=== PATIENT | female | born 1965 | race Caucasian/White ===

== ENCOUNTER 2021-06-29 20:36 | Emergency (ER) | payer BC, MEDICARE, SELFPAY ==
[2021-06-29 20:43] VITALS: BP 193/73; PULSE 83; RESP 20; TEMP 36.6; O2SAT 93; BMI 30.9
--- NOTE | 2021-06-29 20:59 | CTR_ITS ---
PROCEDURE INFORMATION: Exam: CT Cervical Spine Without Contrast Exam date and time: 06/29/2021 8:59 PM Age: 56 years old Clinical indication: Injury or trauma; Fall; Blunt trauma; Prior surgery; Surgery type: Cervical fusion; Patient HX: Patient states was bucked off of a mule yesterday and fell off of a wagon tonight. C/O head and neck pain with hematuria. History of appendix cancer. TECHNIQUE: Imaging protocol: Computed tomography images of the cervical spine without contrast. Radiation optimization: All CT scans at this facility use at least one of these dose optimization techniques: automated exposure control; mA and/or kV adjustment per patient size (includes targeted exams where dose is matched to clinical indication); or iterative reconstruction. COMPARISON: CT head wo con* [id number] 06/29/2021 9:24 PM RADIATION DOSE METRICS: Total DLP (mGy-cm): 804.14 FINDINGS: Vertebrae: No acute fracture. Normal alignment. C1-C2: Occipital craniectomy changes seen with surgical hardware in the region of the occipital bone and upper cervical spine. C2-C3: No significant disc protrusion. No severe spinal canal stenosis. No significant neural foraminal narrowing. C3-C4: No significant disc protrusion. No severe spinal canal stenosis. No significant neural foraminal narrowing. C4-C5: No significant disc protrusion. No severe spinal canal stenosis. No significant neural foraminal narrowing. C5-C6: No significant disc protrusion. No severe spinal canal stenosis. No significant neural foraminal narrowing. C6-C7: No significant disc protrusion. No severe spinal canal stenosis. No significant neural foraminal narrowing. C7-T1: No significant disc protrusion. No severe spinal canal stenosis. No significant neural foraminal narrowing. Soft tissues: Unremarkable. Lungs: Lung apices are normal. CT/CT cervical spin wo con* [id number] IMPRESSION: Negative for fracture or dislocation Radiation Dose CTDIVOL = (mGy): DLP = 804.14 (mGy-cm)
--- NOTE | 2021-06-29 20:59 | CTR_ITS ---
PROCEDURE INFORMATION: Exam: CT Head Without Contrast Exam date and time: 06/29/2021 8:59 PM Age: 56 years old Clinical indication: Injury or trauma; Fall; Blunt trauma (contusions or hematomas); Prior surgery; Surgery type: Occipito-cervical fusion. ; Patient HX: Patient states was bucked off of a mule yesterday and fell off of a wagon tonight. C/O head and neck pain with hematuria. History of appendix cancer. TECHNIQUE: Imaging protocol: Computed tomography of the head without contrast. Radiation optimization: All CT scans at this facility use at least one of these dose optimization techniques: automated exposure control; mA and/or kV adjustment per patient size (includes targeted exams where dose is matched to clinical indication); or iterative reconstruction. COMPARISON: No relevant prior studies available. RADIATION DOSE METRICS: Total DLP (mGy-cm): 903.05 FINDINGS: Brain: Normal. No hemorrhage. Unremarkable white matter. No mass effect. Cerebral ventricles: No ventriculomegaly. Paranasal sinuses: Visualized sinuses are unremarkable. No fluid levels. Mastoid air cells: Visualized mastoid air cells are well aerated. Bones/joints: Occipital craniectomy changes with surgical hardware seen. Soft tissues: Unremarkable. CT/CT head wo con* [id number] IMPRESSION: 1. Negative for intracranial hemorrhage or mass effect. 2. Occipital craniectomy changes with surgical hardware seen. Radiation Dose CTDIVOL = (mGy): DLP = 903.05 (mGy-cm)
--- NOTE | 2021-06-29 21:00 | CTR_ITS ---
PROCEDURE INFORMATION: Exam: CT Abdomen And Pelvis Without Contrast Exam date and time: 06/29/2021 9:00 PM Age: 56 years old Clinical indication: Injury or trauma; Fall; Blunt; Generalized; Prior surgery; Surgery type: Appy; Patient HX: Patient states was bucked off of a mule yesterday and fell off of a wagon tonight. C/O head and neck pain with hematuria. History of appendix cancer. TECHNIQUE: Imaging protocol: Computed tomography of the abdomen and pelvis without contrast. Radiation optimization: All CT scans at this facility use at least one of these dose optimization techniques: automated exposure control; mA and/or kV adjustment per patient size (includes targeted exams where dose is matched to clinical indication); or iterative reconstruction. COMPARISON: No relevant prior studies available. RADIATION DOSE METRICS: Total DLP (mGy-cm): 1846.08 FINDINGS: Lungs: There is a calcified granuloma in the right middle lobe. There is subsegmental atelectasis in the lung bases. Liver: The liver is normal. Gallbladder and bile ducts: The gallbladder is normal. There is no biliary dilation. Pancreas: The pancreas is unremarkable. Spleen: The spleen is unremarkable. Adrenal glands: The adrenal glands are unremarkable. Kidneys and ureters: Mild right hydronephrosis. Nondilated ureter. The left kidney and ureter are unremarkable. Stomach and bowel: The stomach is unremarkable. The small bowel is nondilated. There is moderate descending colonic diverticulosis without evidence of diverticulitis. Appendix: The appendix is absent. Intraperitoneal space: There is no free air or significant intraperitoneal free fluid. Vasculature: The aorta is unremarkable. There is no aneurysm. Lymph nodes: There is no lymphadenopathy in the retroperitoneum, mesentery, pelvis or inguinal regions. Urinary bladder: The urinary bladder is unremarkable. Reproductive: The uterus is unremarkable. There is no adnexal mass or large cyst. Bones/joints: There is mild degenerative disease in the lumbar spine. The pelvis and proximal femora are intact. Soft tissues: The abdominal wall is intact. CT/CT abdomen pelvis wo con [id number] IMPRESSION: 1. No acute findings. 2. Incidental findings above. Radiation Dose CTDIVOL = (mGy): DLP = 1846.08 (mGy-cm)
[2021-06-29 21:16] LABS: Basophils # 0.1 10^3/uL (0.0-0.1); Basophils % 1.3 %; Eosinophils # 0.1 10^3/uL (0.0-0.8); Eosinophils % 1.5 %; Hematocrit 39.9 % (37.0-47.0); Hemoglobin 13.2 g/dL (11.5-15.3); Lymphocytes # 2.8 10^3/uL (0.8-4.8); Mean Corpuscular HGB Conc 33.1 g/dL (30.0-36.0); Mean Corpuscular Hemoglobin 30.5 pg (28.0-34.0); Mean Corpuscular Volume 92.1 fl (81-99); Mean Platelet Volume 10.7 fL (7.4-10.4); Monocytes # 0.8 10^3/uL (0.2-0.9); Neutrophils # 5.19 10^3/uL (1.8-7.7); Nucleated Red Blood Cells % 0 %; Platelet Count 339 10^3/cmm (130-400); Red Blood Count 4.33 10^6/uL (4.1-5.3); Red Cell Distribution Width 12.8 % (12.1-15.1); White Blood Count 9.1 10^3/uL (4.0-10.0)
[2021-06-29 21:37] LABS: INR 0.96 (0.8-1.2); Partial Thromboplastin Time 27.6 SECONDS (23.9-36.7)
[2021-06-29 21:39] LABS: Alanine Aminotransferase 21 U/L (0-33); Albumin Level 4.4 g/dL (3.5-5.2); Alkaline Phosphatase 103 IU/L (35-105); Anion Gap 17.3 (5-19); Aspartate Amino Transferase 23 U/L (0-32); Blood Urea Nitrogen 18 mg/dL (6-20); Calcium 8.8 mg/dL (8.5-10.5); Carbon Dioxide 24 mmol/L (22-29); Chloride 101 mmol/L (98-107); Glomerular Filtration Rate 64.3 mL/min (90-130); Glucose 105 mg/dL (65-115); Lipase 73 U/L (13-60); Osmolality Calculated 290 mOsm/kg (285-295); Potassium 3.3 mmol/L (3.5-5.1); Sodium 139 mmol/L (136-145); Total Bilirubin 0.2 mg/dL (0.15-1.2); Total Protein 7.4 g/dL (6.6-8.7)
--- NOTE | 2021-06-29 21:43 | ED_ITS ---
HPI - General Adult General: Chief complaint: Trauma Stated complaint: NECK/BACK PAIN FELL OUT OF WAGON Time Seen by Provider: 06/29/21 20:57 History of Present Illness: HPI narrative: Patient is a 56-year-old female w/ history prior occipital craniotomy with surgical fixation to the neck who presents the emergency room with complaints of headache and neck pain and hematuria after falling off a wagon. Patient fell to the ground history yesterday afternoon and since then reported neck pain. Patient denies any LOC since last report significant back of the neck pain. Patient has had 2 episodes of hematuria since then. Denies any abdominal pain, or other focal extremity pain. Denies any melena or hematochezia. Patient has no other focal complaints at this time. Onset:1 day ago Duration:1 day Location:home Severity: moderate Review of Systems Narrative: Constitutional: No fever, no chills. HEENT: No vision changes, +neck pain CV: No chest pain, no palpitations PULM: no cough, no dyspnea. GI: No abdominal pain, no N/V/D. : No dysuria MSKEL: No muscle pain SKIN: No new rashes, no lesions. NEURO: +headache, no focal weakness. HEME: No visible bruises PSYCH: Normal mood [facility] ED Female Reproductive History: Date of last menstrual period: 12/18/20 Physical Exam Narrative: EXAM NARRATIVE: Head: Atraumatic Eyes: PERRL, conjunctiva without injection ENT: Mucous membrane moist NECK: ROM unable to asess since in C collar, mild posterior neck tenderness to palpation LUNGS: LCTAB, no crackles/rhonchi CV: RRR ABDOMEN: Soft, No focal TTP. NO guarding rebound, guarding, rigidity. No CVA tenderness to percussion. Neg Foster/Neg McBurney's point tenderness, no suprabupic tenderness to palpation. EXTREMITY: Normal ROM SKIN: No rash or erythema NEURO: Awake and alert, no focal motor deficits PSYCH: Normal mood and affect Course Vital Signs: Vital signs: Vital Signs Temperature 97.8 F 06/29/21 20:43 Pulse Rate 72 06/29/21 23:13 Respiratory Rate 18 06/29/21 23:13 Blood Pressure 193/73 06/29/21 20:43 Pulse Oximetry 98 06/29/21 23:13 MDM - General Adult MDM Narrative: Medical decision making narrative: Patient is a 56-year-old female w/ hx of prior surgery to the neck who presents the emergency room after falling off a wagon yesterday with complaints of headache, neck pain, and hematuria x2 episode. On exam, patient is hemodynamically stable with mild tenderness to palpation over the posterior cervical spine. Patient is in a c- collar currently. Rest of neuro exam is intact. Lab work-up showed of potassium of 3.3, will replete with PO potassium. UA is negative for hematuria gross or microscopic. CT imagings today did not show any signs of brain bleeding, solid abdominal organ injury, or acute fractures patient received Tylenol in the emergency room. I have given patient follow up with our counter caser to be seen by a PCP for persistent pain and possible concussion symptoms. Patient aware of a call from our counter caser to schedule for appointment(s) and verbalizes understanding of the importance of following up. Incidental findings of granuloma discussed extensively with patient. Patient received a copy of the CT report with the documented findings. Patient is instructed to follow up urgently with specialists. Rx: tylenol, norflex, and lidocaine patch PRN pain Disposition: Discharge. Patient counseled regarding diagnostic impression, treatment plan. Patient given ED strict return precautions to return for continuation, worsening, or development of new symptoms. Instructed to f/u w/ PCP regarding symptoms today. Patient verbalized understanding. Lab Data: Labs: Lab Results 06/29/21 06/29/21 06/29/21 19:20 19:20 21:20 WBC 9.1 10^3/uL 10^3/ uL (4.0-10.0) RBC 4.33 10^6/uL 10^6 /uL (4.1-5.3) Hgb 13.2 g/dL g/dL (11.5-15.3) Hct 39.9 % % (37.0-47.0) MCV 92.1 fl fl (81-99) MCH 30.5 pg pg (28.0-34.0) MCHC 33.1 g/dL g/dL (30.0-36.0) RDW 12.8 % % (12.1-15.1) Plt Count 339 10^3/cmm 10^3 /cmm (130-400) MPV 10.7 fL H fL (7.4-10.4) Neut % (Auto) 57.0 % % Lymph % (Auto) 31.0 % % Florence % (Auto) 9.0 % % Eos % (Auto) 1.5 % % Baso % (Auto) 1.3 % % Neut # (Auto) 5.19 10^3/uL 10^3 /uL (1.8-7.7) Lymph # (Auto) 2.8 10^3/uL 10^3/ uL (0.8-4.8) Florence # (Auto) 0.8 10^3/uL 10^3/ uL (0.2-0.9) Eos # (Auto) 0.1 10^3/uL 10^3/ uL (0.0-0.8) Baso # (Auto) 0.1 10^3/uL 10^3/ uL (0.0-0.1) Nucleated RBC % (a uto) 0 % % Nucleated RBCs # 0.0 /100WBC /100W BC PT 13.10 SECONDS SEC ONDS (12.1-14.9) INR 0.96 (0.8-1.2) APTT 27.6 SECONDS SECO NDS (23.9-36.7) Sodium 139 mmol/L mmol/L (136-145) Potassium 3.3 mmol/L L mmol /L (3.5-5.1) Chloride 101 mmol/L mmol/L (98-107) Carbon Dioxide 24 mmol/L mmol/L (22-29) Anion Gap 17.3 (5-19) BUN 18 mg/dL mg/dL (6-20) Creatinine 0.9 mg/dL mg/dL (0.5-0.9) GFR Calculation 64.3 mL/min L mL/ min (90-130) Glucose 105 mg/dL mg/dL (65-115) Calculated Osmolal ity 290 mOsm/kg mOsm/ kg (285-295) Calcium 8.8 mg/dL mg/dL (8.5-10.5) Total Bilirubin 0.2 mg/dL mg/dL (0.15-1.2) AST 23 U/L U/L (0-32) ALT 21 U/L U/L (0-33) Alkaline Phosphata se 103 IU/L IU/L (35-105) Total Protein 7.4 g/dL g/dL (6.6-8.7) Albumin 4.4 g/dL g/dL (3.5-5.2) Globulin 3.0 g/dL g/dL (1.3-4.6) Lipase 73 U/L H U/L (13-60) Urine Opiates Scre en Ur Barbiturates Sc reen Ur Phencyclidine S crn Ur Amphetamines Sc reen U Benzodiazepines Scrn Urine Cocaine Scre en U Marijuana (THC) Screen 06/29/21 21:20 WBC RBC Hgb Hct MCV MCH MCHC RDW Plt Count MPV Neut % (Auto) Lymph % (Auto) Florence % (Auto) Eos % (Auto) Baso % (Auto) Neut # (Auto) Lymph # (Auto) Florence # (Auto) Eos # (Auto) Baso # (Auto) Nucleated RBC % (a uto) Nucleated RBCs # PT INR APTT Sodium Potassium Chloride Carbon Dioxide Anion Gap BUN Creatinine GFR Calculation Glucose Calculated Osmolal ity Calcium Total Bilirubin AST ALT Alkaline Phosphata se Total Protein Albumin Globulin Lipase Urine Opiates Scre en Positive ng/mL H ng/mL (Negative) Ur Barbiturates Sc reen Negative ng/mL ng /mL (Negative) Ur Phencyclidine S crn Negative ng/mL ng /mL (Negative) Ur Amphetamines Sc reen Negative ng/mL ng /mL (Negative) U Benzodiazepines Scrn Negative ng/mL ng /mL (Negative) Urine Cocaine Scre en Negative ng/mL ng /mL (Negative) U Marijuana (THC) Screen Negative ng/mL ng /mL (Negative) Imaging Data^: Other Imaging: Radiologist's impression: [address] [id number] Scan ReportSigned Patient: Mar Burton #: [id number]: 1965Acct#:[id number]/Sex: 56 / FADM Date: 06/29/21Loc: ERRoom/Bed:Attending Dr: Ordering Provider/Ordering MD: Michelle Jordan MD Date of Service: 06/29/21 Procedure(s): CT cervical spin wo con* [id number] Accession Number(s): [id number] Report Number: [id number] PROCEDURE INFORMATION: Exam: CT Cervical Spine Without Contrast Exam date and time: 06/29/2021 8:59 PM Age: 56 years old Clinical indication: Injury or trauma; Fall; Blunt trauma; Prior surgery; Surgery type: Cervical fusion; Patient HX: Patient states was bucked off of a mule yesterday and fell off of a wagon tonight. C/O head and neck pain with hematuria. History of appendix cancer. TECHNIQUE: Imaging protocol: Computed tomography images of the cervical spine without contrast. Radiation optimization: All CT scans at this facility use at least one of these dose optimization techniques: automated exposure control; mA and/or kV adjustment per patient size (includes targeted exams where dose is matched to clinical indication); or iterative reconstruction. COMPARISON: CT head wo con* [id number] 06/29/2021 9:24 PM RADIATION DOSE METRICS: Total DLP (mGy-cm): 804.14 FINDINGS: Vertebrae: No acute fracture. Normal alignment. C1-C2: Occipital craniectomy changes seen with surgical hardware in the region of the occipital bone and upper cervical spine. C2-C3: No significant disc protrusion. No severe spinal canal stenosis. No significant neural foraminal narrowing. C3-C4: No significant disc protrusion. No severe spinal canal stenosis. No significant neural foraminal narrowing. C4-C5: No significant disc protrusion. No severe spinal canal stenosis. No significant neural foraminal narrowing. C5-C6: No significant disc protrusion. No severe spinal canal stenosis. No significant neural foraminal narrowing. C6-C7: No significant disc protrusion. No severe spinal canal stenosis. No significant neural foraminal narrowing. C7-T1: No significant disc protrusion. No severe spinal canal stenosis. No significant neural foraminal narrowing. Soft tissues: Unremarkable. Lungs: Lung apices are normal. CT/CT cervical spin wo con* [id number] IMPRESSION: Negative for fracture or dislocation Radiation Dose CTDIVOL = (mGy): DLP = 804.14 (mGy-cm) Dictated By:Boom Lozano MDSigned By:Boom Lozano MDSigned Date/Time:06/29/211DD/ [address] [id number] Scan ReportSigned Patient: Mar Burton #: [id number]: 1965Acct#:[id number]/Sex: 56 / FADM Date: 06/29/21Loc: ERRoom/Bed:Attending Dr: Ordering Provider/Ordering MD: Michelle Jordan MD Date of Service: 06/29/21 Procedure(s): CT head wo con* [id number] Accession Number(s): [id number] Report Number: [id number] PROCEDURE INFORMATION: Exam: CT Head Without Contrast Exam date and time: 06/29/2021 8:59 PM Age: 56 years old Clinical indication: Injury or trauma; Fall; Blunt trauma (contusions or hematomas); Prior surgery; Surgery type: Occipito-cervical fusion. ; Patient HX: Patient states was bucked off of a mule yesterday and fell off of a wagon tonight. C/O head and neck pain with hematuria. History of appendix cancer. TECHNIQUE: Imaging protocol: Computed tomography of the head without contrast. Radiation optimization: All CT scans at this facility use at least one of these dose optimization techniques: automated exposure control; mA and/or kV adjustment per patient size (includes targeted exams where dose is matched to clinical indication); or iterative reconstruction. COMPARISON: No relevant prior studies available. RADIATION DOSE METRICS: Total DLP (mGy-cm): 903.05 FINDINGS: Brain: Normal. No hemorrhage. Unremarkable white matter. No mass effect. Cerebral ventricles: No ventriculomegaly. Paranasal sinuses: Visualized sinuses are unremarkable. No fluid levels. Mastoid air cells: Visualized mastoid air cells are well aerated. Bones/joints: Occipital craniectomy changes with surgical hardware seen. Soft tissues: Unremarkable. CT/CT head wo con* [id number] IMPRESSION: 1. Negative for intracranial hemorrhage or mass effect. 2. Occipital craniectomy changes with surgical hardware seen. Radiation Dose CTDIVOL = (mGy): DLP = 903.05 (mGy-cm) Dictated By:Boom Lozano MDSigned By:Boom Lozano MDSigned Date/Time:06/29/219DD/ 58 [address] [place], [place] [address]JR Scan ReportSigned Patient: Mar Burton #: [id number]: 1965Acct#:[id number]/Sex: 56 / FADM Date: 06/29/21Loc: ERRoom/Bed:Attending Dr: Ordering Provider/Ordering MD: Michelle Jordan MD Date of Service: 06/29/21 Procedure(s): CT abdomen pelvis wo con [id number] Accession Number(s): [id number] Report Number: [id number] PROCEDURE INFORMATION: Exam: CT Abdomen And Pelvis Without Contrast Exam date and time: 06/29/2021 9:00 PM Age: 56 years old Clinical indication: Injury or trauma; Fall; Blunt; Generalized; Prior surgery; Surgery type: Appy; Patient HX: Patient states was bucked off of a mule yesterday and fell off of a wagon tonight. C/O head and neck pain with hematuria. History of appendix cancer. TECHNIQUE: Imaging protocol: Computed tomography of the abdomen and pelvis without contrast. Radiation optimization: All CT scans at this facility use at least one of these dose optimization techniques: automated exposure control; mA and/or kV adjustment per patient size (includes targeted exams where dose is matched to clinical indication); or iterative reconstruction. COMPARISON: No relevant prior studies available. RADIATION DOSE METRICS: Total DLP (mGy-cm): 1846.08 FINDINGS: Lungs: There is a calcified granuloma in the right middle lobe. There is subsegmental atelectasis in the lung bases. Liver: The liver is normal. Gallbladder and bile ducts: The gallbladder is normal. There is no biliary dilation. Pancreas: The pancreas is unremarkable. Spleen: The spleen is unremarkable. Adrenal glands: The adrenal glands are unremarkable. Kidneys and ureters: Mild right hydronephrosis. Nondilated ureter. The left kidney and ureter are unremarkable. Stomach and bowel: The stomach is unremarkable. The small bowel is nondilated. There is moderate descending colonic diverticulosis without evidence of diverticulitis. Appendix: The appendix is absent. Intraperitoneal space: There is no free air or significant intraperitoneal free fluid. Vasculature: The aorta is unremarkable. There is no aneurysm. Lymph nodes: There is no lymphadenopathy in the retroperitoneum, mesentery, pelvis or inguinal regions. Urinary bladder: The urinary bladder is unremarkable. Reproductive: The uterus is unremarkable. There is no adnexal mass or large cyst. Bones/joints: There is mild degenerative disease in the lumbar spine. The pelvis and proximal femora are intact. Soft tissues: The abdominal wall is intact. CT/CT abdomen pelvis wo con [id number] IMPRESSION: 1. No acute findings. 2. Incidental findings above. Radiation Dose CTDIVOL = (mGy): DLP = 1846.08 (mGy-cm) Dictated By:Lopez Ruiz MDSigned By:Lopez Ruiz MDSigned Date/Time:06/29/21 2241DD/ 2100 Discharge Plan Discharge Patient Disposition: Home Clinical Impression: Hematuria, Fall, Concussion Condition: Stable Prescriptions: New acetaminophen 500 mg tablet 500 mg PO Q6H PRN (Reason: pain) 10 Days Qty: 40 RF: 0 lidocaine 5 % adhesive patch,medicated 1 patch topical DAILY PRN (Reason: pain) 10 Days Qty: 10 RF: 0 orphenadrine citrate 100 mg tablet extended release 100 mg PO BID PRN (Reason: pain) 10 Days Qty: 20 RF: 0 Discharge Orders: Discharge ED (Routine); Ordered 06/29/21 Ordered By: Michelle Jordan Discharge Diet: Advance as tolerated Discharge Activity: Resume usual activity Patient Instructions: Concussion (ED), Acute Neck Pain (ED) Activity Restrictions/Additional Instructions: Please follow-up with your primary care provider for further evaluation of your symptoms. You may develop concussion within the next few days. Do not take your medicine with alcohol as they both can be sedating. Please do not operate a vehicle when taking your medicine or feeling tired. Come back to the emergency room if having new or concerning complaints. There is a calcified granuloma in the right middle lobe. Here's the CT report:[facility] [id number] [place], [place] [address]RJ Scan ReportSigned Patient: Mar Burton #: [id number]: 1965Acct#:[id number]/Sex: 56 / FADM Date: 06/29/21Loc: ERRoom/Bed:Attending Dr: Ordering Provider/Ordering MD: Michelle Jordan MD Date of Service: 06/29/21 Procedure(s): CT abdomen pelvis wo con [id number] Accession Number(s): [id number] Report Number: [id number] PROCEDURE INFORMATION: Exam: CT Abdomen And Pelvis Without Contrast Exam date and time: 06/29/2021 9:00 PM Age: 56 years old Clinical indication: Injury or trauma; Fall; Blunt; Generalized; Prior surgery; Surgery type: Appy; Patient HX: Patient states was bucked off of a mule yesterday and fell off of a wagon tonight. C/O head and neck pain with hematuria. History of appendix cancer. TECHNIQUE: Imaging protocol: Computed tomography of the abdomen and pelvis without contrast. Radiation optimization: All CT scans at this facility use at least one of these dose optimization techniques: automated exposure control; mA and/or kV adjustment per patient size (includes targeted exams where dose is matched to clinical indication); or iterative reconstruction. COMPARISON: No relevant prior studies available. RADIATION DOSE METRICS: Total DLP (mGy-cm): 1846.08 FINDINGS: Lungs: There is a calcified granuloma in the right middle lobe. There is subsegmental atelectasis in the lung bases. Liver: The liver is normal. Gallbladder and bile ducts: The gallbladder is normal. There is no biliary dilation. Pancreas: The pancreas is unremarkable. Spleen: The spleen is unremarkable. Adrenal glands: The adrenal glands are unremarkable. Kidneys and ureters: Mild right hydronephrosis. Nondilated ureter. The left kidney and ureter are unremarkable. Stomach and bowel: The stomach is unremarkable. The small bowel is nondilated. There is moderate descending colonic diverticulosis without evidence of diverticulitis. Appendix: The appendix is absent. Intraperitoneal space: There is no free air or significant intraperitoneal free fluid. Vasculature: The aorta is unremarkable. There is no aneurysm. Lymph nodes: There is no lymphadenopathy in the retroperitoneum, mesentery, pelvis or inguinal regions. Urinary bladder: The urinary bladder is unremarkable. Reproductive: The uterus is unremarkable. There is no adnexal mass or large cyst. Bones/joints: There is mild degenerative disease in the lumbar spine. The pelvis and proximal femora are intact. Soft tissues: The abdominal wall is intact. CT/CT abdomen pelvis wo con [id number] IMPRESSION: 1. No acute findings. 2. Incidental findings above. Radiation Dose CTDIVOL = (mGy): DLP = 1846.08 (mGy-cm) Dictated By:Lopez Ruizigned By:Lopez Ruiz Date/Timothy e:06/29/21 2241DD/ 2100 Coding Level of Care Code ED Drier Transfer Car Operator for Johan Espinoza
[2021-06-29 22:23] LABS: Amphetamines Screen Urine Negative (Negative); Barbiturates Screen Urine Negative (Negative); Benzodiazepines Screen Urine Negative (Negative); Cocaine Screen Urine Negative (Negative); Opiate Screen Urine Positive (Negative); PCP Screen Urine Negative (Negative); THC Screen Urine Negative (Negative)
[2021-06-29] MEDS: potassium chloride oral liq 20 mEq/15 mL UDC 40 MEQ PO (23:12)
[2021-06-29 23:13] VITALS: PULSE 72; RESP 18; O2SAT 98
[2021-06-29] MEDS: acetaminophen 500 mg Tablet 1000 MG PO (23:13)
--- NOTE | 2021-06-30 14:03 | DCPLANNER ---
assistant manager bilingual had message to speak with patient about getting established with a primary care physician. assistant manager bilingual spoke with patient, she stated that she does not live in the area.
== END 2021-06-29 23:15 | disposition home or self-care (01) ==
PROVIDERS: Emergency Provider Emergency Medicine
DX: S06.0X9A Concussion with loss of consciousness of unspecified duration, initial encounter (principal); R31.9 Hematuria, unspecified; W17.89XA Other fall from one level to another, initial encounter
CPT/HCPCS: 70450; 72125; 74176; 80053; 80306; 83690; 85025; 85610; 85730; 99283